=== PATIENT | male | born 1980 | race Caucasian/White ===

== ENCOUNTER 2023-09-09 06:39 | Outpatient (CLI) | payer OTHER, SELFPAY ==
--- NOTE | ~2023-09-09 | XR_ITS ---
Clinical Indication: Chest pain PA and lateral views of the chest: Comparison: None Findings: The lungs are clear, without evidence of focal consolidation or pleural effusion. Cardiome diastinal silhouette is within normal limits. Bones and soft tissues are unremarkable. Impression: Normal chest. Reviewed, dictated and finalized at location . Impression: Normal chest.
--- NOTE | ~2023-09-09 | XR_ITS ---
Cervical Spine: AP, lateral, open-mouth views, with neutral, flexion, extension positioning Clinical History: Pain Findings: The normal lordotic curve is maintained. The vertebral bodies and posterior elements appea r intact. The intervertebral disc spaces are well maintained. Pre-vertebral soft tissues are unremar kable. Impression: No significant abnormality is seen. Reviewed, dictated and finalized at location . Impression: No significant abnormality is seen.
== END 2023-09-09 06:40 | disposition home or self-care (01) ==
LOC: ANHIMG 06:43
PROVIDERS: PCP Physician Assistant; Visit Provider Physician Assistant
DX: R07.89 Other chest pain (principal); M79.629 Pain in unspecified upper arm
CPT/HCPCS: 71046; 72050

== ENCOUNTER 2024-09-19 07:02 | Outpatient (CLI) | payer OTHER, SELFPAY ==
--- NOTE | ~2024-09-19 | XR_ITS ---
Lumbosacral Spine: AP and lateral views Clinical History: Pain Findings: The normal lordotic curve is maintained. The vertebral bodies and posterior elements are i ntact. There is advanced facet arthropathy, especially from L3 through S1. There is advanced degenera tive disc narrowing at L4-L5 and L5-S1. The sacroiliac joints are normally outlined. Impression: Degenerative spondylosis, as above, advanced at the lower lumbar spine. Reviewed, dictated and finalized at location M. Impression: Degenerative spondylosis, as above, advanced at the lower lumbar spine.
--- OUTSIDE RECORDS SUMMARY | 2024-09-19 07:06 | XMS_ITS | Clinical Summary ---
Author Organization [facility] Address [address] [place] [address] Care Team Providers Care Sericulture Teacher Name Role Phone Caron Duke Primary Care Pr ovider Source Comments [facility],non-owned Affiliates and Associated Physician Practices is amultiple site organization consisting of ambulatory clinics and hospital sitesin [place], [place], [place] and [place]. This disclosure is being madepursuant to the Care Everywhere program and may not contain all information available regarding this patient. Last updated 17.[facility] Allergies No known active allergies Medications * Be aware that medications may not be up to date on this document. Alwaysverify current medications with the patient. No known medications Social History Tobacco Use Types Packs/Day Years Used Date Smoking Tobacco: Never Smokeless Tobacco: Never Alcohol Use Standard Drinks/Week Comments Yes 5 (1 standard drink = 0.6 oz pur e alcohol) Weekly Sex and Gender Information Value Date Recorded Sex Assigned at Not on file Legal Sex Male 3:48 PM BRIQUETTE MAKER Gender Identity Not on file Sexual Orientation Not on file Last Filed Vital Signs Vital Sign Reading Time Taken Comments Blood Pressure 134/85 05/01/2018 9:49 AM BRIQUETTE MAKER Pulse 63 05/01/2018 9:49 AM BRIQUETTE MAKER Temperature 36.9 C (98.5 F) 04/05/2018 1:17 PM BRIQUETTE MAKER Respiratory Rate - - Oxygen Saturation 99% 04/05/2018 1:17 PM BRIQUETTE MAKER Inhaled Oxygen Concentration - - Weight 95.7 kg (211 lb) 05/01/2018 9:49 AM BRIQUETTE MAKER Height 185.4 cm (6' 1) 05/01/2018 9:49 AM BRIQUETTE MAKER Body Mass Index 27.84 05/01/2018 9:49 AM BRIQUETTE MAKER Plan of Treatment Health Maintenance Due Date Last Done Comments LIPID TESTING 1980 HIV SCREENING 1995 HEPATITIS C SCREENING 05/26/1998 DTAP/TDAP/TD VACCINES (1 - Tdap) 1999 HEPATITIS B VACCINE (1 of 3 - 19+ 3-dose series) 1999 COVID-19 VACCINE (1 - 2023-2 5 season) 2023 DEPRESSION SCREENING 04/04/2024 INFLUENZA VACCINE (Season Ended) 2024 ZOSTER VACCINE (1 of 2) 2030 HIB VACCINE Aged Out No longer eligi ble based on patient's age to complete this topic HPV VACCINE Aged Out No longer eligi ble based on patient's age to complete this topic MENINGOCOCCAL (Group B) VACC INE SHARED DECISION-MAKING Aged Out No longer eligibl e based on patient's age to complete this topic MENINGOCOCCAL GROUPS A/C/Y/W VACCINE Aged Out No longer eligible b ased on patient's age to complete this topic PNEUMOCOCCAL VACCINE Aged Out No long er eligible based on patient's age to complete this [place] [address] [employer] Care Teams Sericulture Teacher Relationship Specialty Start Date End Date Caron Duke PA [address] [place] [address] [place] [phone] PCP - General 04/05/18
--- OUTSIDE RECORDS SUMMARY | 2024-09-19 07:06 | XMS_ITS | Clinical Summary ---
Author Organization [email or web address] [facility] [address] [facility] Address [address] [place] [address] Care Team Providers Care Hotel Concierge Name Role Phone Unavailable Primary Care Provider Unavailabl e Allergies No known active allergies Medications atorvastatin (LIPITOR) 40 mg tablet Take 1 Tablet (40 mg) by mouth daily. 100 Tablet 3 09/27/2023 Active aspirin (ECOTRIN EC) 81 mg Tablet, Delayed Release (E.C.) Take 1 Tablet (81 mg) by mouth daily. 90 Tablet 2 09/27/2023 Active Active Problems No known active problems Encounters Date Type Department Care Team Description 09/04/2024 External Device Data [facility] ABSTRACTION Provider, Abstract 08/07/2024 External Device Data [facility] ABSTRACTION Provider, Abstract 07/03/2024 External Device Data [facility]STRACTION Provider, Abstract from Last 3 Months Social History Tobacco Use Types Packs/Day Years Used Date Smoking Tobacco: Never Smokeless Tobacco: Never Tobacco Cessation:Counseling Given: Not Answered Alcohol Use Standard Drinks/Week Comments Yes 0 (1 standard drink = 0.6 oz pur e alcohol) Food Insecurity Answer Date Recorded Patient needs follow up regardin 07/26/2024 Transportation Needs Answer Date Record ed Patient needs follow up regardin 07/26/2024 Housing Stability Answer Date Recorded Social/Environmental Concerns No concerns Utility Needs Answer Date Recorded Patient needs follow up regardin 07/26/2024 Sex and Gender Information Value Date Recorded Sex Assigned at Not on file Legal Sex Male 2:02 PM CDT Gender Identity Not on file Sexual Orientation Not on file Last Filed Vital Signs Vital Sign Reading Time Taken Comments Blood Pressure 104/78 10/25/2023 8:19 AM CDT Pulse 60 10/25/2023 8:19 AM CDT Temperature 37 C (98.6 F) 10/04/2023 9:37 AM CDT Respiratory Rate 18 10/04/2023 2:00 PM CDT Oxygen Saturation 99% 10/04/2023 2:00 PM CDT Inhaled Oxygen Concentration - - Weight 98 kg (216 lb) 10/25/2023 8:19 AM CDT Height 185.4 cm (6' 1) 10/25/2023 8:19 AM CDT Body Mass Index 28.5 10/25/2023 8:19 AM CDT Plan of Treatment Upcoming Encounters Date Type Department Care Team (Late st Contact Info) Description 10/29/2024 8:30 AM CDT Office Visit [facility] [address] [facility] [facility] [address] [address] [facility] [address] [place] [address] Marie Gomez FNP [address] [place] [address] Health Maintenance Due Date Last Done Comments Pre-Diabetes and Diabetes Screening 1980 DTAP/TDAP/TD VACCINES (1 - Tdap) 1999 HEPATITIS B VACCINES (1 of 3 - 19+ 3-dose series) 1999 INFLUENZA VACCINE (#1) 2023 HPV VACCINES Aged Out No longer eligi ble based on patient's age to complete this topic Insurance [employer] [facility] [id number]
--- OUTSIDE RECORDS SUMMARY | 2024-09-19 07:06 | XMS_ITS | Referral Summary ---
Author Organization [facility] [address] Address [address] [place] [address] Care Team Providers Care Financial Analyst Intern Name Role Phone Caron Zavala Primary Care Pr ovider Allergies No known active allergies Social History Tobacco Use Types Packs/Day Years Used Date Smoking Tobacco: Never Assessed Personal Safety Answer Date Recorded Getting School Help Needed Not on file 09/08 Sex and Gender Information Value Date Recorded Sex Assigned at Not on file Legal Sex Male 9:47 AM CDT Gender Identity Not on file Sexual Orientation Not on file Plan of Treatment Not on file Insurance [facility] CHOICE PLUS Care Teams Financial Analyst Intern Relationship Specialty Start Date End Date Caron Zavala PA [address] [place] [address] PCP - General Physician Pediatric Speech Therapist 09/09/23
--- OUTSIDE RECORDS SUMMARY | 2024-09-19 07:06 | XMS_ITS | Clinical Summary ---
Author Organization [facility] [address] Address [address] [place] [address] Care Team Providers Care Roast Master Name Role Phone Caron Zavala Primary Care [...] Orientation Not on file Plan of Treatment Health Maintenance Due Date Last Done Comments Depression Screening 1980 Hepatitis C Screening 1980 DTaP/Tdap/Td Vaccine (1 - Tdap) 1991 Varicella Vaccines (1 of 2 - 13+ 2-dose series) 1993 Hepatitis B Screening 1998 Regular Well Visit/Exam 18-64 1998 Covid-19 Vaccine ( - 2023-2 5 season) 2023 04/17/2021, 07/07/2020, 06/16/2020 Influenza Vaccine (Season Ended) 2024 HPV Vaccines Aged Out No longer eligi ble based on patient's age to complete this topic Pneumococcal vaccine <65 Aged Out No longer eligible based on patient's age to complete this topic Insurance [facility] CHOICE PLUS [facility]PPO Address: [place] [address] Care Teams Roast Master Relationship Specialty Start Date End Date Caron Zavala PA [address] [place] [address] PCP - General Physician Mason Foreman/Superintendant 09/09/23
--- OUTSIDE RECORDS SUMMARY | 2024-09-19 07:07 | XMS_ITS | Data Portability ---
Author Organization [facility] Vicky ARENAS Address [address] [facility] [address] [place] [address] Care Team Providers Care Assembly Line Worker Name Role Phone DARLENE WAN Primary Care Provider Unavailab le Assessment Encounter Date Assessment Date Assessment LastModified by Organization Details LastModified Time 05/24/2024 05/24/2024 eye and dental UTD derm UTD, basal cell right forehead. routine derm appts. labs due no fam hx of colon cancer Not available 05/24/2024 11:30:05 Plan of Treatment Reminders Order Date Submit Date Provider Last Modified By Organization Details Last Modified Time Details Appointments None recorde d. Lab PSA, serum or plasma 2024 025 [facility] [place], [address], [place], [address], 12:33:04 TSH + free T4, serum 2024 025 [facility], [address], [place], [address], 12:29:56 lipid panel, serum 2024 025 [facility] [place], [address], [place], [address], 12:32:11 CMP, serum or plasma 2024 025 [facility], [address], [place], [address], 5 12:29:18 CBC w/ auto diff 2024 025 [facility], [address], [place], [address], 5 12:31:31 HbA1c (hemogl obin A1c), blood 2024 025 [facility], [address], [place], [address], 5 12:32:19 PSA, serum or plasma 2023 024 [email or web address] [facility], [address], [place], [address], 4 10:56:54 TSH + free T4, serum 2023 024 CINDY [facility], [address], [place], [address], 4 09:44:24 lipid panel, serum 2023 024 [email or web address] [facility], [address], [place], [address], 4 10:56:54 CMP, serum or plasma 2023 024 [email or web address] [facility], [address], [place], [address], 4 10:56:54 CBC w/ auto diff 2023 024 [email or web address] [facility], [address], [place], [address], 4 10:56:54 HbA1c (hemogl obin A1c), blood 2023 024 [email or web address] [facility], [address], [place], [address], 4 10:56:54 Referral None recorde d. Procedures treadmi ll nuclear stress test (PROC) 2023 024 [facility], [address], [address], [place], [address], 4 14:53:05 Surgeries None recorde d. Imaging XR, cervica l spine [address] ([address]), [address] [place] [address], [address], 4 16:31:09 XR, chest, 2 view [address] ([address]), [address] [place] [address], [address], 4 16:31:08 Medication Orders None recorde d. Patient TargetsNo targets recorded. Patient Instructions Encounter Date Encounter Id Patient Instructions Last Modified By Organization Details Last Modified Time 05/24/2024 [id number] A healthy lifestyle: care instructions Not available 05/24/2024 11:46:02 Reason for Referral None Reported. Results Created Date Observation Date Name Description Value Unit Range Abnormal Flag Note LastModifiedBy Organization Detail LastModifiedTime 09/09/1909/09/2023 XR, chest , 2 view No observ ation record ed. [place] [id number] [facility] [address], [place], [address], 09/22/2023 11:10:39 09/22/19 24 09/22/2023 tread mill nucle ar stres s test (PROC ) No observ ation record ed. [address] [facility] [address], [place], [address], 09/23/2023 12:04:17 Result Notes None recorded. Problems Name Problem SNOMED Code Status Onset Date Resolution Date Notes Provider Name and Address Organization Details Recorded Time Family history of Cardiovascular disease 298075109 Active 2023 HAROON Khan Attn: Bhumi coley,[address] [facility], [place], [address], [facility] 4 21:09:52 Body mass index 25-29 - overweight 920307865 Active 2023 HAROON Khan Attn: Accountfrancisca g,[address] [facility], [place], [address], [facility] 4 21:10:15 Overweight 822122831 Active 2024 HAROON Khan Attn: Bhumi g,[address] [facility], [place], [address], [facility] 5 01:12:24 Problem Notes None recorded. Medical Equipment None Reported. Allergies No known drug allergies Medications Name Sig Start Date Stop Date Status Note LastModified by Organization Details LastModified Time atorvastatin 40 mg tablet TAKE 1 TABLET BY MOUTH EVERY DAY active Not Available Not Available No t Available aspirin 81 mg tablet,delayed release Take 1 tablet every day by oral route for 30 days. active Not Available Not Available No t Available methylpredniso lone 4 mg tablets in a dose pack TAKE 6 TABLETS ON DAY 1 DIRECTED ON PACKAGE AND DECREASE BY 1 TAB EACH DAY FOR A TOTAL OF 6 DAYS active Not Available Not Available No t Available Vitals Date Recorded Respiratory rate Systolic blood pressure Diastolic blood pressure Provider Name and Address Organization Details Last Updated DateTime 05/24/2024 18 /min 110 mm[Hg] 80 mm[Hg] HAROON Khan Attn: Accounting, [address] [facility], [place], [address], [facility] 05/24/2024 11:46:49 Date Recorded Body height Body mass index (BMI) Body weight Oxygen saturation Oxygen saturation in Arterial blood by Pulse oximetry Heart rate Systolic blood pressure Diastolic blood pressure Provider Name and Address Organization Details Last Updated DateTime 5 185.42 cm 29.3 kg/m2 218812. 51 g 98 % 98 % 58 /min 128 mm[Hg] 82 mm[Hg] Chuy Cason MA [facility] 5 11:14:13 Date Recorded Body height Respiratory rate Body mass index (BMI) Body weight Oxygen saturation Oxygen saturation in Arterial blood by Pulse oximetry Heart rate Systolic blood pressure Diastolic blood pressure Provider Name and Address Organization Details Last Updated DateTime 4 185.42 cm 20 /min 28.8 kg/m2 25226.1 4 g 98 % 98 % 60 /min 122 mm[Hg] 86 mm[Hg] Chuy Cason MA [facility] 4 12:40:40 Date Recorded Body height Body mass index (BMI) Body weight Oxygen saturation Oxygen saturation in Arterial blood by Pulse oximetry Heart rate Respiratory rate Systolic blood pressure Diastolic blood pressure Provider Name and Address Organization Details Last Updated DateTime 5 185.42 cm 28.8 kg/m2 17492.5 7 g 99 % 99 % 64 /min 18 /min 138 mm[Hg] 82 mm[Hg] Chuy Cason MA [facility] 5 15:34:03 Social History Question Answer Notes LastModified by Organizat ion Details LastModified Time Tobacco Smoking Status Never Smoker Chuy Cason MA null, [facility] 08/09/2023 13:02:26 Do You Have An Advance Directive? Yes Information not available 08/09/2023 Are You Blind Or Do You Have Difficulty Seeing? No Glasses Information not available 08/09/2023 What Is Your Level Of Caffeine Consumption? Occasional Information not available 08/09/2023 In The 14 Days Before Symptom Onset, Have You Had Close Contact With A Laboratory-confir med COVID-19 While That Case Was Ill? No Information not available 08/09/2023 In The 14 Days Before Symptom Onset, Have You Had Close Contact With A Person Who Is Under Investigation For COVID-19 While That Person Was Ill? No Information not available 08/09/2023 Have You Been To An Area Known To Be High Risk For COVID-19? No Information not available 08/09/2023 Are You Deaf Or Do You Have Serious Difficulty Hearing? No Information not available 08/09/2023 What Type Of Diet Are You Following? REGULAR Information not available 08/09/2023 Are There Any Guns Present In Your Home? No Information not available 08/09/2023 What Was The Date Of Your Most Recent Tobacco Screening? 09/04/2024 Information not available 09/04/2024 What Is Your Relationship Status? Information not available 08/09/2023 Do You Use Your Seat Belt Or Car Seat Routinely? Yes Information not available 08/09/2023 Do You Have Smoke And Carbon Monoxide Detectors In Your Home? Yes Information not available 08/09/2023 Do You Use Sunscreen Routinely? Yes Information not available 08/09/2023 Has Tobacco Cessation Counseling Been Provided? Yes Information not available 08/09/2023 On What Date Was Tobacco Cessation Counseling Provided? 09/04/2024 Information not available 09/04/2024 Sex: Male Functional Status Question Answer Note LastModified by Organizat ion Details LastModified Time Do you use any illicit or recreational drugs? No Information not available 08/09/2023 Do you or have you ever used any other forms of tobacco or nicotine? No Information not available 08/09/2023 What is your level of alcohol consumption? Occasional Information not available 08/09/2023 Are you currently employed? Yes Information not available 08/09/2023 Are you able to care for yourself? 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 Occasional Information not available 08/09/2023 Mental Status Question Answer Note LastModified by Organization D etails LastModified Time Do you feel stressed (tense, restless, nervous, or anxious, or unable to sleep at night)? [id number] Information not available 05/24/2024 Family History Relationship Description Onset Age of this Age Resolved Age Notes LastModified by Organization Details LastModified Time Father Hypertensive disorder [email or web address] Not available 2023 12:42:09 Medical History Condition Response Coronary Artery Disease N Other N Atrial Fibrillation N High Blood Pressure N Kidney or Bladder Problems N Thyroid Problems N GI Problems N Depression N COPD N Blood Clots N Skin Problems N Anemia N Heart Attack (NC) N Anxiety Disorder N Diabetes N Muscle, Joint, or Bone Problems N Seizures/Epilepsy N Acid Reflux (GERD) N Cancer N Stroke N Asthma N Allergies Y High Cholesterol N Hepatitis N Liver Disease N Headaches N Heart Failure N Osteoporosis N Immunizations Vaccine Type Date Status Note Provider Nam e and Address Organization Details Recorded Time COVID-19, mRNA, LNP-S, PF, 30 mcg/0.3 mL dose 04/17/2021 completed [place], [place] - [facility] 05/24/2024 11:12:34 COVID-19, mRNA, LNP-S, PF, 30 mcg/0.3 mL dose 06/16/2020 completed [place], [place] - [facility] 05/24/2024 11:12:34 COVID-19, mRNA, LNP-S, PF, 30 mcg/0.3 mL dose 07/07/2020 completed [place], [place] - [facility] 05/24/2024 11:12:34 Past Encounters Encounter ID Performer Location Encounter Start Date Encounter Closed Date Diagnosis/Indication Diagnosis SNOMED-CT Code Diagnosis ICD10 Code Diagnosis Note [id number] Antonio Robertson MD [facility] [address] [place] [address] 08/10/2023 12:16:08 08/10/2023 14:37:38 Adult health examination 772984444 Z00.00 annual wellness exam completed. fasting labs ordered for annual review. Cholesterol screening 27 4686504 Z13.220 fasting lipids are due Diabetes m ellitus screening 183507627 Z13.1 a1c screening is due. Screening for malignant neoplasm of prostate 214440772 Z12.5 annual PSA lab due Atypical chest pain 1025 60843 R07.89 refer for treadmill nuclear stress testing and check CXR. Family his tory of Cardiovascular disease 158198262 Z82.49 Pt has fam hx of CAD. Thyroid di sorder screening 637818434 Z13.29 routine TFT panel due Pain in axilla 128818499 M79.629 c/o pain in left axilla at times. check baseline cspine to evaluate for possible disc etiology causing impingemen t in the axillary nerve system. Body mass index 25-29 - overweight 339440698 Z68.28 bmi 28.8 [id number] Antonio Robertson MD [facility] [employer] [address] [place] [address] 05/24/2024 10:59:25 05/24/2024 11:51:23 Body mass index 25-29 - overweight 262324720 Z68.28 BMI is 29.3 Overweight 645700706 E66 .3 Adult heal th examination 938850059 Z00.00 annual wellness exam completed. fasting labs ordered for annual review. Family his tory of Cardiovascular disease 382717371 Z82.49 Pt has fam hx of CAD. Patient is on atorvastat in 40 mg daily empiricall y started by cardiologi st Cholesterol screening 27 6360929 Z13.220 fasting lipids are due Diabetes m ellitus screening 044361875 Z13.1 a1c screening is due. Screening for malignant neoplasm of prostate 362223122 Z12.5 annual PSA lab due Thyroid di sorder screening 542168683 Z13.29 routine TFT panel due [id number] Antonio Robertson MD [facility] [employer] [address] [place] [address] 09/04/2024 14:53:35 09/04/2024 16:01:13 Body mass index 25-29 - overweight 425616567 Z68.28 BMI is 28.8 Overweight 231580266 E66 .3 Lumbar radiculopathy 128 531799 M54.16 Health Concerns Section Related Observation LastModified by Organization Detai ls LastModified Time None Recorded Concern Status LastModified by Organization Details LastModified Time None Recorded Advance Directives Directive Y: Payers Insurance Date Sequence Insurance Name Policy Number Policy Harris Covered Member ID Harris Member ID Guarantor Name 09/02/2024 1 [employer] [id number] Antonio Marshall [id number] Antonio Marshall 05/24/2024 1 [facility] [id number] Antonio Marshall [id number] Antonio Marshall Notes Date Note Type Note Provider Name and Address Organization Details Recorded Time 08/10/2023 text/html Angina/Chest PainReported bypatient.Location:ch est; substernal;radiates to the left arm Quality:tightness;ach ing Severity:not limiting Duration:lasts seconds Onset/Timing:started weeks ago Context:exertional;at rest Aggravating Factors:nothing makes it worse Associated Symptoms:no dyspnea; no decrease in exercise capacity; no fatigue; no nocturnal episodes; no resting episodes; no associated palpitations; no associated dizziness; not triggered by his routine exercise that he partakes in. HAROON Khan Attn: Accounting,[address] [facility], [place], [address], [facility] 09/23/2023 16:09:08 05/24/2024 text/html Patient is here for his annual wellness exam. He does have a strong family history of cardiovascular disease and has had a cardiac workup himself including a cardiac catheterization last year. In follow-up consultation with library circulation assistant they did place him on atorvastatin 40 mg daily. He is due for all updated labs. HAROON Khan Attn: Accounting,[address] [facility], [place], [address], [facility] 05/27/2024 01:12:56
== END 2024-09-19 07:03 | disposition home or self-care (01) ==
PROVIDERS: PCP Physician Assistant; Visit Provider Physician Assistant
DX: M47.816 Spondylosis without myelopathy or radiculopathy, lumbar region (principal); M47.817 Spondylosis without myelopathy or radiculopathy, lumbosacral region
CPT/HCPCS: 72100

== ENCOUNTER 2025-03-15 07:49 | Outpatient (CLI) | payer OTHER, SELFPAY ==
--- NOTE | ~2025-03-15 | MR_ITS ---
EXAM/PROCEDURE: MR lumbar spine wo con HISTORY: L lumbar radiculopathy COMPARISON: September 19, 2024 lumbar spine x-rays TECHNIQUE: Multiplanar noncontrast lumbar spine MRI FINDINGS: Degenerative changes present throughout the lumbar spine involving disc spaces and posterior elements. Partial lumbarization of the S1 vertebral body noted. The conus tapers normally at the level of L1. Level specific findings as follows: L1-2: Mild degenerative change L2-3: Mild degenerative change L3-4: Moderate facet hyperostosis and thickening of ligamentum flavum with mild posterior spondylosis results in mild to moderate bilateral neural foraminal narrowing. No spinal canal stenosis or discrete disc protrusion. L4-5: More severe thickening of ligamentum flavum with facet hyperostosis and broad-based disc bulging/posterior spondylosis results in borderline spinal canal stenosis. No discrete disc protrusion. Mild stenosis may be present in the left lateral recess. Moderately severe bilateral neural foraminal narrowing left worse than right. L5-S1: Moderately severe broad-based disc bulging/posterior spondylosis with thickening of ligamentum flavum and facet hyperostosis results in borderline spinal canal stenosis. No discrete disc protrusion. Moderate to severe left and mild to moderate right-sided neural foraminal narrowing. Borderline stenosis in the left lateral recess. IMPRESSION: 1. 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 2. Multilevel degenerative changes involving both disc spaces and posterior elements, most advanced at the L4-5 and L5-S1 levels as detailed above. Reviewed, dictated and finalized at location A. IMPRESSION: 1. Anomalous lumbosacral articulation with partial lumbarization of the S1 vert ebral body. 2. Multilevel degenerative changes involving both disc spaces and posterior jessica ments, most advanced at the L4-5 and L5-S1 levels as detailed above.
== END 2025-03-15 07:50 | disposition home or self-care (01) ==
PROVIDERS: PCP Physician Assistant; Visit Provider Physician Assistant
DX: Q76.49 Other congenital malformations of spine, not associated with scoliosis (principal); M51.369 Other intervertebral disc degeneration, lumbar region without mention of lumbar back pain or lower extremity pain; M51.379 Other intervertebral disc degeneration, lumbosacral region without mention of lumbar back pain or lower extremity pain
CPT/HCPCS: 72148